=== PATIENT | male | born 1945 | race Hispanic/Latino ===

== ENCOUNTER 2023-06-22 10:47 | Observation (INO) | payer MEDICARE ==
[~2023-06-22 10:47] MED LIST: ASPIRIN81 MG PO; CARVEDILOL3.125 MG PO; CLOPIDOGREL75 MG PO; CRESTOR10 MG PO; LISINOPRIL5 MG PO; METFORMIN HCL500 MG PO; METFORMIN HCL850 MG PO; VITAMIN C PO; ZETIA10 MG PO
[2023-06-22] MEDS: LACTATED RINGER'S 1,000 ML ONE (11:47)
[2023-06-22 11:48] LABS: BASOPHILS # (AUTO) 0.1 (0.0-0.1); BASOPHILS % 0.8 % (0.0-1.0); EOSINOPHILS # (AUTO) 0.1 (0.0-0.4); HEMATOCRIT 35.3 % (38.2-49.6); HEMOGLOBIN 12.7 g/dL (14.0-18.0); LYMPHOCYTES # (AUTO) 1.7 (1.0-3.2); LYMPHOCYTES % 21.9 % (18.0-39.1); MEAN CORPUSCULAR HEMOGLOBIN 31.8 pg (28-32); MEAN CORPUSCULAR VOLUME 88.3 fL (81-99); MONOCYTES # (AUTO) 0.7 (0.2-0.8); MONOCYTES % 8.6 % (4.4-11.3); NEUTROPHILS # (AUTO) 5.2 (2.1-6.9); NEUTROPHILS % 67.4 % (38.7-80.0); PLATELET COUNT 183 x10e3/uL (140-360); RED CELL DISTRIBUTION WIDTH 12.4 % (11.7-14.4); WHITE BLOOD COUNT 7.77 x10e3/uL (4.8-10.8)
[2023-06-22 12:23] LABS: ALBUMIN/GLOBULIN RATIO 1.3 (0.8-2.0); ANION GAP 14.4 mmol/L (8-16); BILIRUBIN,TOTAL 0.7 mg/dL (0.2-1.2); CALCIUM 9.5 mg/dL (8.4-10.2); CREATININE, SERUM 1.5 mg/dL (0.72-1.25); POTASSIUM 4.4 mmol/L (3.5-5.1); TOTAL PROTEIN 7.1 g/dL (6.5-8.1)
[2023-06-22] MEDS ORDERED: BUPIVACAINE 0.25% 30ML SDV ONE (13:06)
[2023-06-22] MEDS ORDERED: HEPARIN SOD (PORCINE) 5,000 UNIT/ML VIAL ONE (13:06)
[2023-06-22] MEDS ORDERED: SODIUM CHLORIDE 0.9% 500ML 500 ML ONE (13:06)
[2023-06-22] MEDS ORDERED: FENTANYL CITRATE/PF 100MCG/2 ML INJ ONE (13:22)
[2023-06-22] MEDS ORDERED: ETOMIDATE 2 MG/ML 10 ML INJ IV ONE (14:14)
[2023-06-22] MEDS ORDERED: LIDOCAINE HCL 2% LOCAL INJ 5 ML SDV VIAL INJ ONE (14:14)
[2023-06-22] MEDS ORDERED: DEXAMETHASONE SOD PHOS INJ 4 MG/ML SDV ONE (14:14)
[2023-06-22] MEDS ORDERED: ONDANSETRON HCL INJ 2MG/ML 2ML 2 MG/ML VIAL ONE (14:14)
[2023-06-22] MEDS ORDERED: SUCCINYLCHOLINE CHLORIDE 20 MG/ML 10ML VIAL ONE (14:14)
[2023-06-22] MEDS ORDERED: SEVOFLURANE INHAL SOLN 250 ML PEN BTL ONE (14:14)
[2023-06-22] MEDS ORDERED: PROPOFOL IV EMULSION 10 MG/ML 20 ML VIAL ONE (14:14)
[2023-06-22] MEDS ORDERED: ROCURONIUM BROMIDE 10 MG/ML 5ML VIAL IV ONE (14:14)
[2023-06-22] MEDS ORDERED: PHENYLEPHRINE HCL 1% 10 MG/ML VIAL ONE (14:14)
[2023-06-22] MEDS ORDERED: ONDANSETRON HCL INJ 2MG/ML 2ML 2 MG/ML VIAL IV PRN (16:15)
[2023-06-22] MEDS: SODIUM CHLORIDE 0.9% 1000ML 1,000 ML IV SCH (16:15)
[2023-06-22] MEDS ORDERED: HYDROMORPHONE 1MG/1ML INJ IV PRN (16:15)
[2023-06-22 17:14] VITALS: BP 146/80; PULSE 60; RESP 16; TEMP 97.5; O2SAT 100
[2023-06-22 17:15] VITALS: BP 146/80; PULSE 60; RESP 16; TEMP 97.5; O2SAT 100
[2023-06-22] MEDS: LEVOFLOXACIN 500MG/D5W 100ML 100 ML IV ONE (17:38)
[2023-06-22] MEDS: METFORMIN HCL 500 MG TAB PO SCH (17:52)
[2023-06-22] MEDS: HYDROCODONE/APAP 7.5MG-325MG 1 EA TAB PO PRN (17:52)
[2023-06-22] MEDS: CARVEDILOL 3.125 MG TAB PO SCH (17:53)
[2023-06-22] MEDS: LISINOPRIL 10 MG TAB PO SCH (17:53)
[2023-06-22 17:54] VITALS: BP 155/71; PULSE 60; RESP 17; TEMP 97.5; O2SAT 99
[2023-06-22 20:00] VITALS: BP 155/71; PULSE 60; RESP 17; TEMP 97.5; O2SAT 99
[2023-06-22 20:24] VITALS: BP 144/72; PULSE 59; RESP 17; TEMP 97.5; O2SAT 98
[2023-06-22 23:59] VITALS: BP 115/67; PULSE 62; RESP 19; TEMP 97.5; O2SAT 99
[2023-06-23 05:29] LABS: BASOPHILS % 0.1 % (0.0-1.0); HEMOGLOBIN 11.8 g/dL (14.0-18.0); LYMPHOCYTES % 12.7 % (18.0-39.1); MEAN CORPUSCULAR HEMOGLOBIN 31.5 pg (28-32); MEAN CORPUSCULAR HGB CONC 35.8 g/dL (31-35); MONOCYTES # (AUTO) 0.5 (0.2-0.8); MONOCYTES % 6.5 % (4.4-11.3); NEUTROPHILS # (AUTO) 6.4 (2.1-6.9); NEUTROPHILS % 80.4 % (38.7-80.0); PLATELET COUNT 164 x10e3/uL (140-360); RED BLOOD COUNT 3.75 x10e6/uL (4.3-5.7); RED CELL DISTRIBUTION WIDTH 12.2 % (11.7-14.4); WHITE BLOOD COUNT 7.95 x10e3/uL (4.8-10.8)
[2023-06-23 05:46] VITALS: BP 118/64; PULSE 61; RESP 18; TEMP 97.5; O2SAT 99
[2023-06-23 06:18] LABS: ANION GAP 13.3 mmol/L (8-16); CALCIUM 8.7 mg/dL (8.4-10.2); CREATININE, SERUM 1.23 mg/dL (0.72-1.25); POTASSIUM 4.3 mmol/L (3.5-5.1)
[2023-06-23 08:00] VITALS: BP 130/68; PULSE 68; RESP 17; TEMP 97.8; O2SAT 98
[2023-06-23 09:02] VITALS: BP 130/68; PULSE 68; RESP 17; TEMP 97.8; O2SAT 98
== END 2023-06-23 10:59 | disposition home or self-care (01) ==
LOC: OR 10:47 → PACU V 16:01 → MED/SURG 16:51
PROVIDERS: ADMIT Surgery; ATTEND Surgery
DX: C77.0 Secondary and unspecified malignant neoplasm of lymph nodes of head, face and neck (principal); C79.89 Secondary malignant neoplasm of other specified sites; C18.9 Malignant neoplasm of colon, unspecified; C78.7 Secondary malignant neoplasm of liver and intrahepatic bile duct; I11.0 Hypertensive heart disease with heart failure; I50.42 Chronic combined systolic (congestive) and diastolic (congestive) heart failure; I25.10 Atherosclerotic heart disease of native coronary artery without angina pectoris; I25.2 Old myocardial infarction; Z95.5 Presence of coronary angioplasty implant and graft; E11.9 Type 2 diabetes mellitus without complications; Z79.84 Long term (current) use of oral hypoglycemic drugs; I44.0 Atrioventricular block, first degree; R00.1 Bradycardia, unspecified; E78.2 Mixed hyperlipidemia; Z90.49 Acquired absence of other specified parts of digestive tract; Z79.02 Long term (current) use of antithrombotics/antiplatelets; Z79.899 Other long term (current) drug therapy; Z88.0 Allergy status to penicillin; Z79.82 Long term (current) use of aspirin
CPT/HCPCS: 36415 ×2; 36561; 60210; 71046; 76000; 80048; 80053; 82948 ×2; 85025 ×2; 88305; 88331; 93005; C1751; G0378 ×2; J0330; J1100; J1644; J1956; J2001; J2371; J2405; J2704; J3010; J7030; J7040; J7121; 88304